=== PATIENT | female | born 1970 | race Hispanic/Latino ===

== ENCOUNTER 2024-12-10 12:25 | Emergency (ER) | payer BC, OTHER ==
[~2024-12-10] VITALS: Ht 154.9 cm; Wt 88.0 kg
--- NOTE | 2024-12-10 12:34 | EKG ---
[facility] Test Date: 2024-12-10 Test Time: 12:10:56 Pat Name: KAI BALTAZAR Department: ED Room: Gender: F [employer]: [id number] : 1970 Requested By: UTE ROSALES Order Number: [id number] Reading MD: Kylee Balderas Measurements Intervals [place] Rate: 58 P: 59 [place]: 143 QRS: 1 QRSD: 93 T: 37 QT: 427 QTc: 420 Interpretive Statements Sinus rhythm Probable left atrial enlargement No previous ECG available for comparison Electronically Signed On 12-12-2024 08:37:12 CDT by Kylee Balderas Please click the below link to view image of tracing.
[2024-12-10 13:22] LABS: IMMATURE GRANULOCYTE ABSOLUTE 0.09 K/uL (0-1); NUCLEATED RED BLOOD CELLS 0.0 % (0.0-0.19); PLATELET COUNT (AUTO) 375 K/uL (130-400); RED BLOOD CELL COUNT(AUTO) 5.20 MIL/uL (4.00-5.50); RED CELL DISTRIBUTION WIDTH 12.9 % (11.0-15.5); WHITE BLOOD COUNT (AUTO) 12.4 K/uL (4.8-10.8)
[2024-12-10 13:32] LABS: CREATININE 0.7 mg/dL (0.5-1.0); GLOMERULAR FILTR. RATE CALC 103.0 mL/min (>90); GLUCOSE,RANDOM 99.0 mg/dL (70-105); SODIUM SERUM 135.0 mmol/L (136-145); UREA NITROGEN, BLOOD 23.0 mg/dL (7-18)
[2024-12-10 13:36] LABS: ASPARTATE AMINOTRANSFERASE 14.0 U/L (10-37); CREATINE KINASE, TOTAL 79.0 U/L (21-232); TOTAL PROTEIN, SERUM 7.5 g/dL (6.0-8.3)
--- NOTE | 2024-12-10 13:58 | HMCIMG ---
EXAM: CR Chest, 1 View. CLINICAL HISTORY: chest pain COMPARISON: None provided. FINDINGS: LUNGS: The lungs show no infiltrate or other acute finding. PLEURAL SPACES: No evidence of pleural effusion or pneumothorax. MEDIASTINUM: The cardiomediastinal silhouette is within normal limits. BONES: No aggressive appearing osseous lesion seen. IMPRESSION: No acute cardiopulmonary pathology is evident. /[place]
--- NOTE | 2024-12-10 15:33 | NUR ---
PT MOVED FROM LOBBY INTO ER 12 ASSUMED CARE AT THIS TIME
[2024-12-10] MEDS ORDERED: NAPR-1192 PO (16:10)
--- NOTE | 2024-12-10 16:12 | ERN ---
General Chief Complaint: Chest Pain Stated Complaint: CHEST PAIN, SOB, JAW PAIN, DIZZINESS, LEFT ARM JAVI Time Seen by MD: 13:51 Source: patient History of Present Illness Initial Comments This patient is a 53-year-old female who presented with complaint of chest pain. She went to her PCP appointment and was referred to the ED. Pain started this morning and was associated with left arm heaviness as well as jaw pain. Patient denied any shortness of breath or nausea or vomiting. There is no change in pa in severity with deep inspiration. Timing/Duration: 4-6 hours Associated Symptoms: chest pain Allergies: Coded Allergies: No Known Drug Allergies (Unverified Allergy, Unknown, 12/10/24) Home Meds Active Scripts Naproxen (Naproxen) 375 Mg Tablet, 1 TAB PO BID for pain for 15 Days, #30 TAB 0 Refills with food Prov:AMBER ROCK MD 12/10/24 Past Medical History Past Medical History: Hypertension Medical History Other: HERNIA Past Surgical History: Results Laboratory and Microbiology Lab and Micro Result Laboratory Tests Test 12/10/24 13:09 12/10/24 14:59 White Blood Count 12.4 K/uL (4.8-10.8) H Red Blood Count 5.20 MIL/uL (4.00-5.50) Hemoglobin 15.2 g/dL (12.0-16.0) Hematocrit 46.4 % (36-48) Mean Corpuscular Volume 89.2 fL (79-99) Mean Corpuscular Hemoglobin 29.2 pg (27.0-33.0) Mean Corpuscular Hemoglobin Concent 32.8 g/dL (32.0-36.0) Red Cell Distribution Width 12.9 % (11.0-15.5) Platelet Count 375 K/uL (130-400) Mean Platelet Volume 8.7 fL (7.5-10.5) Immature Granulocyte % (Auto) 0.7 % (0-1) Neutrophils (%) (Auto) 70.6 % (40.0-77.0) Lymphocytes (%) (Auto) 21.5 % (21.0-51.0) Monocytes (%) (Auto) 6.6 % (3.0-13.0) Eosinophils (%) (Auto) 0.3 % (0.0-8.0) Basophils (%) (Auto) 0.3 % (0.0-5.0) Neutrophils # (Auto) 8.8 K/uL (1.8-7.7) H Lymphocytes # (Auto) 2.7 K/uL (1.0-4.8) Monocytes # (Auto) 0.8 K/uL (0.1-1.0) Eosinophils # (Auto) 0.04 K/uL (0.00-0.70) Basophils # (Auto) 0.04 K/uL (0.00-0.20) Absolute Immature Granulocyte (auto 0.09 K/uL (0-1) Nucleated Red Blood Cells 0.0 % (0.0-0.19) Sodium Level 135 mmol/L (136-145) L Potassium Level 3.6 mmol/L (3.5-5.1) Chloride Level 97 mmol/L (101-111) L Carbon Dioxide Level 30 mmol/L (21-32) Blood Urea Nitrogen 23 mg/dL (7-18) H Creatinine 0.7 mg/dL (0.5-1.0) Glomerular Filtration Rate Calc 103 mL/min (>90) Random Glucose 99 mg/dL (70-105) Total Calcium 8.9 mg/dL (8.5-10.1) Magnesium Level 2.20 mg/dL (1.80-2.40) Total Bilirubin 0.6 mg/dL (0.2-1.0) Direct Bilirubin 0.2 mg/dL (0.0-0.3) Aspartate Amino Transf (AST/SGOT) 14 U/L (10-37) Alanine Aminotransferase (ALT/SGPT) 29 U/L (12-78) Alkaline Phosphatase 104 U/L (50-136) Total Creatine Kinase 79 U/L (21-232) Troponin I High Sensitivity < 4 ng/L (4-50) L < 4 ng/L (4-50) L Total Protein 7.5 g/dL (6.0-8.3) Albumin 3.8 g/dL (3.5-5.0) Lipase 38 U/L (16-77) EKG/XRAY/US/CT/MRI EKG Comment 12/10/2024 12:10:[address] elevation [place] 143, QT 427 P 59, QRS 1, T 37 X-RAY Comment PATIENT: KAI BALTAZAR MR#: [id number] : 1970 SEX: F AGE: 53 LOCATION: [facility] ORDER STATUS: REG ER REPORT#: [id number] SERVICE [id number] REASON: chest pain ORDERING PHYSICIAN: UTE ROSALES DO PROCEDURE: CXR1VW - CHEST 1VW EXAM: CR Chest, 1 View. CLINICAL HISTORY: chest pain COMPARISON: None provided. FINDINGS: LUNGS: The lungs show no infiltrate or other acute finding. PLEURAL SPACES: No evidence of pleural effusion or pneumothorax. MEDIASTINUM: The cardiomediastinal silhouette is within normal limits. BONES: No aggressive appearing osseous lesion seen. IMPRESSION: No acute cardiopulmonary pathology is evident. /[place] DICTATED BY: JENNIFER DOMINIQUE Jr., MD DATE: 12/10/241456 ELECTRONICALLY SIGNED BY: JENNIFER DOMINIQUE Jr., MD DATE: 12/10/241456 [facility] Differential diagnosis: Musculoskeletal chest pain, anxiety, Acute coronary syndrome, pulmonary embolism. This patient is a 53-year-old female who presented with complaint of chest pain. Pain started this morning and was associated with left arm heaviness as well as jaw pain. Patient denied any shortness of breath or nausea or vomiting. There is no change in pain severity with deep inspiration. On presentation, EKG was done to rule out any ischemic changes. It was unremarkable for ST elevation or depression. Troponins were taken and they were repeated after a couple of hours. Both tests came back negative. Chest x-ray was done which showed no acute cardiopulmonary pathology. CBC, LFTs, Lipase and BMP were taken which were unremarkable as well. Patient was given aspirin 325 mg on presentation. She was provided with morphine 2 mg later on for pain relief. ED Course Orders Procedure Category Date Status Time 12 Lead Ekg Tracing- EKG 12/10/24 Complete Technical 12:31 Cbc With Differential LAB 12/10/24 Complete 12:33 Chest 1vw RAD 12/10/24 Resulted 12:33 Magnesium LAB 12/10/24 Complete 12:33 Creatine Kinase, Total LAB 12/10/24 Complete 12:33 Troponin I High LAB 12/10/24 Complete Sensitivity 12:33 Aspirin 325mg Tab PHA 12/10/24 Complete (Aspirin 325mg Tab) 13:00 Basic Metabolic Panel LAB 12/10/24 Complete 12:33 Lipase LAB 12/10/24 Complete 12:33 Hepatic Function Panel LAB 12/10/24 Complete 12:33 Troponin I High LAB 12/10/24 Complete Sensitivity 14:14 Morphine 2mg Syg PHA 12/10/24 Complete (Morphine 2mg Syg) 15:30 Current Medications Medications (Trade) Dose Ordered Sig/Regina Route PRN Reason Start Time Stop Time Status Last Admin Dose Admin Aspirin (Aspirin 325mg Tab) 325 mg ONCE ONCE PO 12/10/24 13:00 12/10/24 13:01 DC 12/10/24 16:14 Morphine Sulfate (morPHINE 2MG SYG) 1 mg ONCE ONCE IVP 12/10/24 15:30 12/10/24 15:31 DC Vital Signs Date Time Temp Pulse Resp B/P (MAP) Pulse Ox O2 Delivery O2 Flow Rate FiO2 12/10/24 16:23 98.1 65 16 131/74 98 Room Air* 0 21 12/10/24 12:27 97.5 69 16 172/89 96 Room Air DX & DISP Disposition: Discharge Departure Impression: Primary Impression: Musculoskeletal chest pain Condition: Stable Scripts Naproxen (Naproxen) 375 Mg Tablet 1 TAB PO BID for pain for 15 Days, #30 TAB 0 Refills with food Prov: AMBER ROCK MD 12/10/24 Referrals: MARY BARNHART MD (PCP) Time of Disposition: 16:06 I performed a substantive portion of the visit. I have reviewed and personally made and approve the management plan that is documented in the notes by myself with BECCA/resident. I acknowledged full responsibility for the patient's management plan. [age] female who presents with chest pain. Clinically it appears to be musculoskeletal. EKG is unremarkable independently interpreted by me The chest x-ray is unremarkable independently interpreted by me Labs are unremarkable. Troponin x2 negative No signs of TID. Low suspicion for PE with a low risk [place]. Her heart score is three. I did consider an admission. Contacted the patient's primary doctor, Dr Aracelis Paiz, and we agreed that the patient can be discharged and she will follow up tomorrow for further cardiac workup. I have examined patient, & reviewed all documents, & agreed W/ the Diagnosis, and Plan ATTESTATION BY PHYSICIAN I have seen and examined the patient. I reviewed the documentation, medical decision making, and treatment plan as noted by the resident provider above. I agree with the findings and plan of care. UTE ROSALES MUHAMMAD H MD Dec 10, 2024 16:12 UTE ROSALES DO Dec 10, 2024 17:42
[2024-12-10] MEDS: ASPIRIN 325MG TAB PO ONE (16:14)
[2024-12-10 16:23] VITALS: BP 131/74; PULSE 65; RESP 16; TEMP 98.1; O2SAT 98
== END 2024-12-10 16:30 | disposition home or self-care (01) ==
LOC: EDH 12:25
DX: R07.89 Other chest pain (principal); I10 Essential (primary) hypertension
CPT/HCPCS: 36415; 71045; 80048; 80076; 82550; 83690; 83735; 84484; 85025; 93005; 99284